=== PATIENT | female | born 1955 | race African-American/Black ===

== ENCOUNTER 2019-05-14 14:40 | Emergency (ER) | payer MEDICARE, MEDICAID, OTHER ==
[~2019-05-14] VITALS: Ht 167.6 cm; Wt 68.0 kg
[2019-05-14] MEDS ORDERED: HYDROCODONE/ACETAMINOPHEN 5/325MG TABLET PO ONE (16:45)
[2019-05-14 18:21] VITALS: BP 137/77
== END 2019-05-14 18:21 | disposition home or self-care (01) ==
LOC: ER 14:40
DX: G89.29 Other chronic pain (principal); M54.5 Low back pain; I10 Essential (primary) hypertension; E11.9 Type 2 diabetes mellitus without complications; Z88.6 Allergy status to analgesic agent
CPT/HCPCS: 99283